=== PATIENT | female | born 1945 | race Hispanic/Latino ===

== ENCOUNTER → 2017-12-04 | Outpatient (CLI) | payer OTHER | END | disposition home or self-care (01) | LOC: OIH 14:41 | PROVIDERS: ATTEND Internal Medicine | DX: Z13.6 Encounter for screening for cardiovascular disorders (principal) | CPT/HCPCS: 75571 ==

== ENCOUNTER → 2019-11-23 | Outpatient (CLI) | payer MEDICARE | END | disposition home or self-care (01) | LOC: RAH 09:43 | PROVIDERS: ATTEND Internal Medicine | DX: S43.402A Unspecified sprain of left shoulder joint, initial encounter (principal); M75.82 Other shoulder lesions, left shoulder; X58.XXXA Exposure to other specified factors, initial encounter; Y93.89 Activity, other specified; Y92.89 Other specified places as the place of occurrence of the external cause; Y99.8 Other external cause status | CPT/HCPCS: 73221 ==

== ENCOUNTER 2022-12-19 06:37 | Day surgery (SDC) | payer MEDICARE ==
[2022-12-16 08:28] LABS: BASOPHILS % (AUTO) 0.4 % (0.0-5.0); EOSINOPHILS % (AUTO) 1.8 % (0.0-8.0); HEMATOCRIT 38.2 % (36-48); LYMPHOCYTES % (AUTO) 25.6 % (21.0-51.0); MEAN CORPUSCULAR HEMOGLOBIN 30.5 pg (27.0-33.0); MEAN CORPUSCULAR HGB CONC 33.5 g/dL (32.0-36.0); MONOCYTES % (AUTO) 6.9 % (3.0-13.0); PLATELET COUNT (AUTO) 207 K/uL (130-400); RED CELL DISTRIBUTION WIDTH 12.5 % (11.0-15.5); WHITE BLOOD COUNT (AUTO) 7.1 K/uL (4.8-10.8)
[2022-12-16 08:41] LABS: ALBUMIN 3.6 g/dL (3.5-5.0); BILIRUBIN,DIRECT 0.1 mg/dL (0.0-0.3); CREATININE 0.8 mg/dL (0.5-1.5); POTASSIUM 4.6 mmol/L (3.5-5.1); TOTAL PROTEIN, SERUM 7.2 g/dL (6.0-8.3)
[2022-12-16 08:42] VITALS: BP 149/77
[2022-12-19] VITALS (18 sets, daily range): BP systolic 118–154; BP diastolic 60–90
[~2022-12-19] VITALS: Ht 154.9 cm; Wt 77.9 kg
[~2022-12-19 06:37] MED LIST: AEC81 PO; AMLO-258 PO; ATOR10 PO; DICL50TA7 PO; ESCI5TAB16 PO; GABA-529 PO; GLIP1TAB5 PO; LISI10TA24 PO; MELA3TAB41 PO; MV-M1TAB20 PO; MVIT PO; OMEG-148 PO; PANT40TA54 PO; TIZA4CAP8 PO; TRAM50TA4 PO; UBID100C45 PO
[2022-12-19] MEDS ORDERED: 0.9%NACL 1000ML 1,000 ML IV ONE (07:16)
[2022-12-19] MEDS: CEFAZOLIN SODIUM 1 GM VIAL ONE ×2 (07:21→08:11)
[2022-12-19] MEDS ORDERED: SUCCINYLCHOLINE 200MG/10ML SYR ONE (07:33)
[2022-12-19] MEDS ORDERED: LIDOCAINE PF 100MG/5ML (2%) SYRINGE 5ML ONE (07:33)
[2022-12-19] MEDS ORDERED: PROPOFOL 10 MG/ML 20ML VIAL IV ONE (07:34)
[2022-12-19] MEDS ORDERED: MIDAZOLAM HCL 1 MG/ML 2ML VIAL ONE (07:34)
[2022-12-19] MEDS ORDERED: FENTANYL CITRATE PF 50 MCG/1 ML 2ML VIAL ONE (07:34)
[2022-12-19] MEDS ORDERED: ROCURONIUM 10MG/1ML SYR 10 MG/ML ML ONE (07:34)
[2022-12-19] MEDS ORDERED: ONDANSETRON 4MG INJ ONE (08:00)
== END 2022-12-19 10:00 | disposition home or self-care (01) ==
LOC: DAH 06:37
PROVIDERS: ATTEND Surgery
DX: L72.3 Sebaceous cyst (principal); Z20.822 Contact with and (suspected) exposure to COVID-19; L72.0 Epidermal cyst; I10 Essential (primary) hypertension; E11.9 Type 2 diabetes mellitus without complications; E78.00 Pure hypercholesterolemia, unspecified; M19.90 Unspecified osteoarthritis, unspecified site; E66.01 Morbid (severe) obesity due to excess calories; Z80.0 Family history of malignant neoplasm of digestive organs; Z82.49 Family history of ischemic heart disease and other diseases of the circulatory system; Z98.890 Other specified postprocedural states; Z98.891 History of uterine scar from previous surgery; Z79.84 Long term (current) use of oral hypoglycemic drugs; Z79.899 Other long term (current) drug therapy; Z79.01 Long term (current) use of anticoagulants; Z68.32 Body mass index [BMI] 32.0-32.9, adult
CPT/HCPCS: 71045; 87426; 80076; 80048; 85025; 36415; 93005; 11403; 82948 ×2; A6260; A4663; A4606; J3010; J0690; J0330; J7030; J2001; J2704; J2405; A4215; A4223; A4222; A4221; A4600; J2250